=== PATIENT | female | born 1990 | race Caucasian/White ===

== ENCOUNTER 2018-10-20 05:39 | Emergency (ER) | payer SELFPAY ==
[~2018-10-20] VITALS: Ht 165.1 cm; Wt 124.1 kg
[2018-10-20 05:43] VITALS: BP 117/63; Ht 165.1 cm; Wt 124.1 kg
== END 2018-10-20 06:04 | disposition home or self-care (01) ==
LOC: ED 05:39
DX: L50.9 Urticaria, unspecified (principal)
CPT/HCPCS: J7512